=== PATIENT | female | born 1990 | race Caucasian/White ===

== ENCOUNTER 2022-03-08 15:27 | Emergency (ER) | payer BC, SELFPAY ==
--- OUTSIDE RECORDS SUMMARY | 2022-03-08 15:31 | XMS REPORT | Continuity of Care Document ---
:1990 Author Organization [facility] t Address [address] [place] [address] Care Team Providers Name Role Phone CAM MCKINNON Primary Care Physician Unavailable Yue Valdivia Attending Clinician Unavailable Doctor Unassigned, [place] Attending Clinician Unavailable CHER BETTS Attending Clinician Unavailable CHER BETTS Attending Clinician Unavailable Cam Mckinnon MD Attending Clinician Yue Valdivia Admitting Clinician Unavailable CHER BETTS Admitting Clinician Unavailable Payers Payer Name Policy Type Policy Number Effective Date Expiration Date S ource Problems Condition Condition Condition Status Onset Resolution Last Treating Co mments Source Name Details Category Date Date Treatment Clinician Date Hyperemesi Hyperemesi Disease Active 2018-02 U lesvia s s 2- [place] Dehydratio Dehydratio Disease Active 2018-02 U lesvia n n 2- ity of 00:00: [place] 00 Medical Branch Gastropare Gastropare Disease Active 2014-02 U lesvia sis sis - ity of 00:00: [place] 00 Medical Branch ADD ADD Disease Active 2014-02 Univers (attention (attention -18 it y of deficit deficit 00:00: [place] disorder) disorder) 00 Medi liudmila without without Branch hyperactiv hyperactiv ity ity Family Family Disease Active 2014-02 Univers history of history of 1-18 it y of breast breast 00:00: [place] cancer cancer Medical Branch Former Former Disease Active 2014-02 Univers smoker smoker -18 ity of 00:00: [place] 00 [facility] Seasonal Seasonal Problem Active Commo n allergies allergies Spir it - [facility] PCOS PCOS Problem Active Common (polycysti (polycysti Sp mamta c ovarian c ovarian - CH I syndrome) syndrome) [facility] Gastroesop Gastroesop Problem Active C ommon hageal hageal Spirit reflux reflux - CHI disease disease St without without [facility] esophagiti esophagiti Me dical [facility] Irritable Irritable Problem Active Com mon bowel bowel Spirit syndrome, syndrome, - CH I unspecifie unspecifie St d type d type [facility] Family Family Diagnosis Active Common history of history of Sp mamta diabetes diabetes - CHI during during [facility] Viral URI Viral URI Diagnosis Active C ommon Spirit - [facility] Depression Depression Problem Active C ommon with with Spirit anxiety anxiety - [facility] Allergies, Adverse Reactions, Alerts Allergy Allergy Status Severity Reaction(s) Onset Inactive Treating Comm ents Source Name Type Date Date Clinician No Known DA Active U [facility] 09[facility]12 [facility] [place] No Known DA Active U NONE [facility] 09-12 [facility] All[facility] 00:00: Hospita s [address] [facility] Bupropio Propensi Active Nausea 2014-02 Univer s n ty to and/or 2-04 ity of adverse Vomiting 00:00: [place] reaction 00 Medical s Branch BUPROPIO DRUG Active N/V 2014-02 Univers N INGREDI 2-04 ity of 00:00: [address] No Known DA Active U [facility] 06-26 [facility] All[facility] 00:00: [facility] [place] No Known DA Active U NONE [facility] 06-26 [facility] 00:00: [facility] [place] Social History Social Habit Start Date Stop Date Quantity Comments Source Sex Assigned At Universit [facility] of [facility] Tobacco use and 2019-02-03 2019-02-03 Never used Universit y of exposure 00:00:00 00:00:00 [place] [facility] History [facility] 2019-02-03 2019-02-03 16 University o f Education 00:00:00 00:00:00 [place] [facility] History [facility] 2019-02-03 2019-02-03 5 University o f Financial 00:00:00 00:00:00 [place] [facility] History [facility] Food 2019-02-03 2019-02-03 1 Univers ity of Worry 00:00:00 00:00:00 [place] [facility] History [facility] Food 2019-02-03 2019-02-03 1 Univers ity of Scarcity 00:00:00 00:00:00 [place] [facility] History [facility] 2019-02-03 2019-02-03 2 University o f Transport Med 00:00:00 00:00:00 [place] Medic al Branch History [facility] 2019-02-03 2019-02-03 2 University o f Transport Non-Med 00:00:00 00:00:00 [facility] edical Branch Alcohol intake 2019-02-03 2019-02-03 Ex-drinker [facility] 00:00:00 00:00:00 (finding) [facility] Alcohol Comment 2014-11-30 2014-11-30 rarely Universit y of 00:00:00 00:00:00 [facility] Smoking Status Start Date Stop Date Source Former smoker 2019-02-03 00:00:00 2019-02-03 00:00:00 [facility] Medications Ordered Filled Start Stop Current Ordering Indication Dosage Frequency Signature Comments Components Source Medication Medication Date Date Medication? Clinician (SIG) Name Name scopolamine 2018-02 Yes [id number] 1.5mg Apply 1 Univers transdermal 2-30 Patch to ity of 1 mg over 3 00:00: area(s) Patric as days patch 00 every 72 Medic al (seventy-t Branch wo) hours. proMETHazin 2018-02 Yes 12.5mg Take 12.5 Univers e 25 mg 2-28 mg by ity of tablet 20:23: mouth [place] 49 every 4 Medical (four) Branch hours as needed for Nausea and Vomiting (N/V). doxylamine- 2018-02 Yes [id number] 1{tbl} Take 1 Univers pyridoxine, 2-28 tablet by ity of vit B6, 00:00: mouth 2 [place] (BONJESTA) 00 (two) Medical 20-20 mg times Branch TbID daily. metoclopram 2018-02 Yes [id number] 10mg Take 1 Univers manuel HCl 10 2-28 tablet by ity of mg tablet 00:00: mouth [place] 00 before Medical meals and Branch at bedtime. ondansetron 2018-02 Yes [id number] 4mg Take 1 Univers (ZOFRAN 2-28 tablet by ity of ODT) 4 mg 00:00: mouth [place] disintegrat 00 every 6 Medic al ing tablet (six) Branch hours as needed for Nausea and Vomiting (N/V). esomeprazol 2018-02 Yes [id number] 20mg Take 20 mg Univers e (NEXIUM) 2-28 by mouth ity o f 20 mg 00:00: daily [place] capsule 00 before a Medical meal. Branch clonazePAM Yes [id number] .5mg Take 1 U nivers 0.5 mg 9-13 tablet by ity of tablet 00:00: mouth as [place] 00 needed Medical (anxiety Branch or insomnia). citalopram Yes [id number] 20mg Take 1 U nivers 20 mg 7-24 tablet by ity of tablet 00:00: mouth [place] 00 daily. Medical Branch clonazePAM 2019- No [id number] .5mg Take 1 Univers 0.5 mg 4-29 09-13 tablet by ity of tablet 00:00: 00:00 mouth as [place] 00 :00 needed Medical (anxiety Branch or insomnia). Yes Lito 1 tablet C ommon Brigida [facility] Clonazepam Clonazepam Yes Lito 1 tablet Common Brigida at bedtime [facility] Melatonin Melatonin Yes Lito 1 tablet Common Brigida at bedtime [facility] as needed - CHI with food [facility] Procedures Procedure Date / Time Performing Clinician Source Performed [id number] 2019-09-26 00:00:[address] [facility] [id number] 2019-09-26 00:00:[address] [facility] [id number] 2019-09-26 00:00:[address] [facility] AUTHORIZATION FOR 2019-09-16 05:01:00 Doctor Unassigned, No Univ [facility] RELEASE OF PHI Name Medical Branch Encounters Start End Encounter Admission Attending Care Care Encounter Source Date/Time Date/Time Type Type Clinicians Facility Department ID 2019-09-29 Inpatient EL RISHI Valdivia LD [id number] [facility] 14:00:00 [facility]ue 58 [facility] [place] 2019-09-26 Inpatient GERI ValdiviaWH LUAN [id number] [facility] 03:20:00 Yue 40 [facility] [place] 2019-09-13 Inpatient GERI ValdiviaWH LUAN [id number] [facility] 10:10:00 Yue [facility] [place] 2019-04-18 Inpatient [facility] [id number] [facility] 05:07:00 18 [facility] [place] 2019-09-16 2019-09-16 Orders Doctor GONZALEZ [id number] 00:00:00 00:00:00 Only Unassigned, FELICITA [id number] [place] [facility] [phone] [facility] 2019-09-16 2019-09-16 Orders Doctor ROTH [id number] [facility] 00:00:00 00:00:00 Only Unassigned, FELICITA [id number] ity of [place] [facility] [id number] Patric as [phone] [address] 2019-05-03 2019-05-03 Outpatient RISHI Valdivia [facility] [id number] [facility] 13:30:00 13:30:00 Yue 35 [facility] [place] 2019-02-03 2019-02-04 Outpatient X CHER BETTS [facility] OBF [id number] [facility] 10:00:14 14:23:00 CHER BETTS [facility] 2018-10-21 2018-10-21 Stevie Mckinnon [facility] [id number] 00:00:00 00:00:00 Cam [facility] [id number] Reji [place] [id number] Professio [phone] nal [address] 2018-10-21 2018-10-21 Stevie Mckinnon [facility] [id number] [facility] 00:00:00 00:00:00 [facility] [id number] it y of Reji Flores [id number] Patric as [place] [phone] Mo dical nal 044 Branch Office [facility] One 2018-02-28 2018-02-28 Outpatient Codie Brooks [id number] Common 11:14:00 11:14:00 [facility] 2018-02-28 2018-02-28 Outpatient Codie Brooks 23 [id number] Common 09:15:00 09:15:00 [facility] Results Test Description Test Time Test Comments Results Result Comments Source HGB HCT 2019-09-27 07:33:00 Test Item Value Reference Range Interpretation Comme nts HEMOGLOBIN (test code = HGB) 9.4 g/dL 10.7-13.9 L Results verified by repeat analysis HEMATOCRIT (test code = HCT) 29.7 % 32.1-42.1 L Results verified by repeat analysis AG HEPATITIS B [id number] 09:15:00 Test Item Value Reference Range Interpretation Comments AG HEPATITIS B SURFACE (test code NONREACTIVE NONREACTIVE = HBSAG) Specimen Comment: LDO [facility] CONSENT FORM SIGNED FOR HIV TESTING? YAB HEPATITIS C [id number] 09:15:00 Test Item Value Reference Range Interpretation Comments AB HEPATITIS C (test code = NONREACTIVE NONREACTIVE HCVAB) SIGNAL TO CUTOFF (test code = 0.21 <0.80 N CUTOFF) Specimen Comment: O [facility] CONSENT FORM SIGNED FOR HIV TESTING? YAB TREPONEMA 2019-09-26 09:15:00 Test Item Value Reference Range Interpretation Comments AB TREPONEMA (test code = TREPAB) NONREACTIVE NONREACTIVE Specimen Comment: O [facility] CONSENT FORM SIGNED FOR HIV TESTING? YAB HIV 1 2 2019-09-26 09:15:00 Test Item Value Reference Range Interpretation Comments AB HIV 1 2 (test NONREACTIVE NONREACTIVE Done by Sie [facility] code = [id number]) 4th Gen HIV Ag/Ab Combo Screen Specimen Comment: O [facility] CONSENT FORM SIGNED FOR HIV TESTING? YCBC W/AUTO DIFF 2019-09-26 07:33:00 Test Item Value Reference Range Interpretation Comments WHITE BLOOD CELL (test code = WBC) 16.3 K/mm3 6.6-12.1 H RED BLOOD CELL (test code = RBC) 4.54 M/mm3 3.45-5.01 N HEMOGLOBIN (test code = HGB) 12.9 g/dL 10.7-13.9 N HEMATOCRIT (test code = HCT) 40.6 % 32.1-42.1 N MEAN CELL VOLUME (test code = MCV) 89 fL 84.1-94.8 N MEAN CELL HGB (test code = MCH) 28.4 pg 27-35 N MEAN CELL HGB CONCETRATION (test 31.8 gm/dL 32.2-34.1 L code = MCHC) RED CELL DISTRIBUTION WIDTH (test 14.3 % 12.4-16.5 N code = RDW) PLATELET COUNT (test code = PLT) 159 K/mm3 133-385 N MEAN PLATELET VOLUME (test code = 12.6 fl 9.1-12.7 N MPV) NEUTROPHIL % (test code = NT%) 87.4 % 56.5-79.4 H LYMPHOCYTE % (test code = LY%) 6.8 % 14.3-34.3 L MONOCYTE % (test code = MO%) 4.9 % 5.1-10.4 L EOSINOPHIL % (test code = EO%) 0.1 % 0.1-3.0 N BASOPHIL % (test code = BA%) 0.2 % 0.1-1.0 N NEUTROPHIL # (test code = NT#) 14.2 K/mm3 LYMPHOCYTE # (test code = LY#) 1.1 K/mm3 MONOCYTE # (test code = MO#) 0.8 K/mm3 EOSINOPHIL # (test code = EO#) 0.02 K/mm3 BASOPHIL # (test code = BA#) 0.0 K/mm3 RBC MORPHOLOGY REQUIRED (test code NORMAL NORMAL = RBCM) PLATELET MORPHOLOGY REQUIRED (test NORMAL NORMAL code = PLTMR) COVID 19 Asymptomatic IH [id number] 06:09:00 Test Item Value Reference Range Interpretation Comments COVID 19 NEGATIVE NEGATIVE This test has b een Asymptomatic IH AG authorize d only for the (test code = detection ofpro teins from COVNONPUIAG) SARS-CoV-2, not for any other viruses orpathogens. Ne gative results should be treated as presumptive andconfirmed wi th a molecular assay , if necessary for patientmanageme nt. Negative result s do not rule out COVID- 19 andshould not b e used as the sole basis for treatment orpat ient management deci sions, including infec tion controldecision s. Negative result s should be considered i n thecontext of a patient's recent exposure s, history and thepresence of clinical signs and symptoms consis tent withCOVID-19. T his test has not been FD A cleared or approved; th e test hasbeen authori logan by FDA under an Emerge ncy Use Authorization(E UA) for use by laborato quique certified under the CLIA thatmeet the re quirements to perform mode rate, high or waivedcomple xity tests. This liam t is authorized for use at thePoint of Car e (POC), i.e., in patien t care settingsoperati ng under a CLIA Certificat e of Waiver, Certifi judy ofCompliance, o r Certificate of Accreditation. This test is only authori logan for the duration of thedeclaration that circumstances e xist justifying theauthorizatio n of emergency use o f in vitro diagnostic test sfor detection and/o r diagnosis of CO VID-19 under Tjlbqkx76 4(b)(1) of the Act, 21 U.S .C. 360bbb-3(b)(1), unless theauthorizatio n is terminated or r evoked sooner. - US PREG AFTER [id number] 16:21:00 Patient Name: PARUL POLANCO Unit No: [id number] EXAMS: CPT CODE: [id number] US PREG AFTER [address] [facility] [address] [place], [place] [address] OBSTETRICAL ULTRASOUND REPORT Pat. Name: PARUL POLANCO Pat. No:[id number] Study Date: 05/03/2019 2:22pm , Age: 06 1990, 28 Pregnancies: 1, Para 0 LMP: 12/17/2018 GA by LMP: 19w4d GA by US: 19w0d GA Selected: 19w3d (From Known E) SARIKA: 09/24/2019 Referr deng RANGEL: YUE VALDIVIA Pet Nutrition Specialist: La Redmond RDMS CPT4: [id number] Admitting MD: YUE VALDIVIA Hist/Ind: Scan 1: Anatomy M EASUREMENTS AGE GROWTH EVALUATION Measurement GA Range Srce %for GA Ratios ----- ---- ------- BPD 4.2 cm 18w4d (73h8g-51o7e) Hadl BPD 13%FL/BPD 0.71 HC 16.2 cm 18w6d (17w2d- 20w3d) Hadl HC 34% FL/AC 0.21 APD 4.5 cm APD HC/AC 1.13 (1.06 - 1.25) TAD 4.6 cm TAD CI 0.76 (0.70 - 0.86) AC 14.3 cm 19w2d (60e0z-49l6c) Hadl AC 48% FL 3.0 cm 18w6d (42v4i-03k0s) Hadl FL 39% HL 3.0 cm 19w6d (26t5h-02n0x) Faisal HL 57% GA for sonogram 19w0d (53c8x-27m6w) Weight Estimate: based on (BPD,HC,AC,FL) Hadlock Weight: 290 gm (247-332) Hadlock : 0lbs, 10oz Cervical Length: 3.6 cm Heart Rate: 143 bpm MATERNAL ANATOMY Ovaries LxHxW (cm) Right 2.5 x 1.6 x 3.0 Vol: 6.3cc Left 2.8 x 1.8 x 3.0 Vol: 7.9cc Ovarian Cysts LxHxW (cm) L1: 1.0 x 1.2 x 1.2 CLINICAL SUMMARY Type of Gestation: Osorio Intrauterine in variable presentation. size is appropriate for gestational age. growth: Consistent with normal growth motion and organs seen: heart motion seen [facility] NAME: PARUL POLANCO Radiology Department PHYS: Yue Cleary MD [address] : 1990 AGE: 28 SEX: F [place] [address] LOC: [facility] PHONE #: [phone] EXAM DATE: 05/03/2019 STATUS: REG CLI FAX #: [phone] RAD NO: Page 1 Signed Report (CONTINUED) Patient Name: PARUL POLANCO Unit No: [id number] EXAMS: CPT CODE: [id number] US PREG AFTER 1ST TRI 64126 (Continued) body and limb movements seen Four chamber heart observed Left ventricular outflow tract (LVOT) seen Right ventricular outflow tract (RVOT) seen Normal intracranial anatomy seen Umbilical cord insertion in fetus seen stomach, Renal Fossa, Bladder and Spine seen Three vessel umbilical cord noted abnormalities observed: None seen at this exam Placental location: Posterior Placental maturity : Grade 1 There is no evidence of placenta previa. Amnioticfluid volume is normal. Uterus and adnexa: No significant abnormality is seen. Thank you for allowing us to participate in the care of this patient. Anastasia iH M.D. Electronic Signature 05/03/2019 04:21pm at 1621 Reported and signed by: Anastasia Hi MD CC: Yue Valdivia Technologist: La Redmond RDMS Probe: Trnscrbd D/ (1621) t.SDR.C Orig Print D/T: S: 05/03/2019 (1620) [facility] NAME: PARUL POLANCO Radiology Department PHYS: Yue Cleary MD [address] : 1990 AGE: 28 SEX: F [phone] LOC: [facility] PHONE #: [phone] EXAM DATE: 05/03/2019 STATUS: REG CLI FAX #: [phone] RAD NO: Page 2 Signed Report Patient Name: PARUL POLANCO Unit No: [id number] EXAMS: CPT CODE: [id number] US PREG AFTER 1ST TRI 54437 (Continued) [facility] NAME: PARUL POLANCO Radiology Department PHYS:Yue Cleary MD [address] : 1990 AGE: 28 SEX: F [phone] LOC: [facility] PHONE #: [phone] EXAM DATE: 05/03/2019 STATUS: REG CLI FAX #: [phone] RAD NO: Page 3 Signed [id number] 07:56:00 Test Item Value Reference Range Interpretation Comments CORTISOL (test code = 10.98 mcg/dL See Note: N Ref Ra nge: AM CORTR) 4.30-22.40 PM 3.09-16.66 mcg/ dL HCG [id number] 07:07:00 Test Item Value Reference Range Interpretation Comments HCG SERUM (test 44254 INTERPRETATI ON:VALUES BETWEEN code = HCG) 15-20 milliInte rnational units/mL NEED T O BERETESTED WITHIN 48 HOURS . All units for these ranges ar e in milliInternatio nalunits/mL0-1 WK AFTER CONCEP TION 0-50 1-2 WKS AFTER ASHISH PTION 40-3002-3 WKS AFTER ASHISH PTION 100-1,0003-4 WK S AFTER CONCEPTION 500- 6,0001-2 MONTHS AFTER CONCEPTIO N 5,000-200,0002- 3 MONTHS AFTER CONCEPTION 10,0 00-100,0002ND TRIMESTER 3,000 -50,0003RD TRIMESTER 1,000 -50,000 SPECIMENS WITH AN HCG LEVEL FROM 0-6 milliInternatio nalunits/mL SHOULD BE CONSI DERED NEGATIVE COMPREHENSIVE METABOLIC [id number] 06:22:00 Test Item Value Reference Range Interpretation Comments SODIUM (test code = NA) 139 mEq/L 135-145 N POTASSIUM (test code = K) 3.0 mEq/L 3.5-5.0 L CHLORIDE (test code = CL) 104 mEq/L 100-115 N CARBON DIOXIDE (test code = CO2) 24 mEq/L 22-31 N ANION GAP (test code = GAP) 14.10 10-20 N GLUCOSE (test code = GLU) 83 mg/dL 65-110 N BLOOD UREA NITROGEN (test code = 6 mg/dL 7-18 L BUN) GLOMERULAR FILTRATION RATE (test 146 ml/min >60 N code = GFR) CREATININE (test code = CREAT) 0.5 mg/dL 0.5-1.0 N TOTAL PROTEIN (test code = PROT) 6.4 gm/dL 6.3-8.2 N ALBUMIN (test code = ALB) 3.0 gm/dL 3.4-4.8 L CALCIUM (test code = CA) 8.1 mg/dL 8.4-10.2 L BILIRUBIN TOTAL (test code = BILT) 0.4 mg/dL 0.2-1.0 N SGOT/AST (test code = AST) 17 units/L 15-37 N SGPT/ALT (test code = ALT) 22 units/L 12-78 N ALKALINE PHOSPHATASE TOTAL (test 46 units/L 46-116 N code = ALKP) CBC W/AUTO [id number] 06:01:00 Test Item Value Reference Range Interpretation Comments WHITE BLOOD CELL (test code = WBC) 10.5 K/mm3 6.6-12.1 N RED BLOOD CELL (test code = RBC) 4.13 M/mm3 3.45-5.01 N HEMOGLOBIN (test code = HGB) 12.5 g/dL 10.7-13.9 N HEMATOCRIT (test code = HCT) 37.5 % 32.1-42.1 N MEAN CELL VOLUME (test code = MCV) 91 fL 84.1-94.8 N MEAN CELL HGB (test code = MCH) 30.3 pg 27-35 N MEAN CELL HGB CONCETRATION (test 33.3 gm/dL 32.2-34.1 N code = MCHC) RED CELL DISTRIBUTION WIDTH (test 13.2 % 12.4-16.5 N code = RDW) PLATELET COUNT (test code = PLT) 209 K/mm3 133-385 N MEAN PLATELET VOLUME (test code = 10.1 fl 9.1-12.7 N MPV) NEUTROPHIL % (test code = NT%) 74.8 % 56.5-79.4 N LYMPHOCYTE % (test code = LY%) 14.2 % 14.3-34.3 L MONOCYTE % (test code = MO%) 7.3 % 5.1-10.4 N EOSINOPHIL % (test code = EO%) 2.9 % 0.1-3.0 N BASOPHIL % (test code = BA%) 0.4 % 0.1-1.0 N NEUTROPHIL # (test code = NT#) 7.9 K/mm3 LYMPHOCYTE # (test code = LY#) 1.5 K/mm3 MONOCYTE # (test code = MO#) 0.8 K/mm3 EOSINOPHIL # (test code = EO#) 0.30 K/mm3 BASOPHIL # (test code = BA#) 0.0 K/mm3 RBC MORPHOLOGY REQUIRED (test code NORMAL NORMAL = RBCM) PLATELET MORPHOLOGY REQUIRED (test NORMAL NORMAL code = PLTMR)
[2022-03-08 15:59] LABS: Absolute Lymphocytes (CBC) 2.7 K/uL (0.7-4.9); Hematocrit 42.7 % (36.0-45.0); Lymphocytes % 21.1 % (15.3-44.8); MCV 87.3 fL (80-100); MPV 8.3 fL (7.6-11.3); RBC Red Blood Cell Count 4.89 M/uL (3.86-4.86)
[2022-03-08 16:02] LABS: Protime INR 1.14
[2022-03-08 16:22] LABS: ALT/SGPT 33 U/L (13-56); AST/SGOT 21 U/L (15-37); Albumin 3.9 g/dL (3.4-5.0); Alkaline Phosphatase 105 U/L (45-117); BUN Blood Urea Nitrogen 11 mg/dL (7-18); Bicarbonate 26 mmol/L (21-32); Bilirubin Total 0.2 mg/dL (0.2-1.0); Glomerular Filtration Rate 123 ml/min (=/>90); Glucose Level 105 mg/dL (74-106); Magnesium 1.6 mg/dL (1.6-2.4); NT PRO-BNP 70 pg/mL (<125); Potassium 3.8 mmol/L (3.5-5.1); Protein, Total 7.3 g/dL (6.4-8.2); Sodium Level 139 mmol/L (136-145); Thyroid Stimulating Hormone 0.783 uIU/mL (0.358-3.740); Troponin High Sensitivity 3.7 pg/mL (<58.9)
[2022-03-08 16:24] LABS: Bilirubin Direct < 0.1 mg/dL (0-0.2)
--- NOTE | 2022-03-08 17:01 | RAD REPORT ---
EXAM DESCRIPTION: RAD - Chest Single View - 03/08/2022 4:52 pm CLINICAL HISTORY: PALPITATIONS COMPARISON: CHEST PA AND LAT 2 VIEW dated 01/12/2013 FINDINGS: Lines: None. Lungs: No evidence of edema or pneumonia. Pleural: No significant pleural effusions or pneumothorax. Cardiac: The heart size is within normal limits. Mediastinum: Within normal limits. Bones: No acute fractures. Other: None IMPRESSION: No acute cardiopulmonary disease.
--- NOTE | 2022-03-08 17:42 | EDPHYS ---
Physician Documentation [facility] Name: Marleni Dye Age: 31 yrs Sex: Female : 1990 Arrival Date: 03/08/2022 Time: 15:28 Bed 18 Private MD: ED Physician Samir Saldana HPI: 03/08 17:47 This 31 yrs old Female presents to ER via Ambulatory with complaints of Abnormal EKG. snw 17:47 Onset: The symptoms/episode began/occurred 4 day(s) ago, and became persistent. snw Associated signs and symptoms: Pertinent positives: near syncope, palpitations, flushing. Modifying factors: The patient symptoms are alleviated by nothing, the patient symptoms are aggravated by Pt has been taking Cipro and Zofran s/p renal calculus (prolonged QT?). Pt also has a history of gestational hyperthyroidism. Historical: - Allergies: 16:20 No Known Allergies; mb9 - PMHx: 16:20 Kidney stone; polycystic ovary syndrome; mb9 - PSHx: 16:20 Tonsillectomy; Adenoid excision; mb9 - Immunization history:: Adult Immunizations up to date. - Social history:: Smoking status: Patient denies any tobacco usage or history of. ROS: 17:46 Eyes: Negative for injury, pain, redness, and discharge, ENT: Negative for injury, snw pain, and discharge, Neck: Negative for injury, pain, and swelling. 17:46 Respiratory: Negative for shortness of breath, cough, wheezing, and pleuritic chest pain, Abdomen/GI: Negative for abdominal pain, nausea, vomiting, diarrhea, and constipation, Back: Negative for injury and pain, : Negative for injury, bleeding, discharge, and swelling, MS/Extremity: Negative for injury and deformity, Skin: Negative for injury, rash, and discoloration, Neuro: Negative for headache, weakness, numbness, tingling, and seizure, Psych: Negative for depression, anxiety, suicide ideation, homicidal ideation, and hallucinations. 17:46 Constitutional: Positive for flushed feeling, near syncopal. 17:46 Cardiovascular: Positive for palpitations. Exam: 17:46 Constitutional: This is a well developed, well nourished patient who is awake, alert, snw and in no acute distress. Head/Face: Normocephalic, atraumatic. Eyes: Pupils equal round and reactive to light, extra-ocular motions intact. Lids and lashes normal. Conjunctiva and sclera are non-icteric and not injected. Cornea within normal limits. Periorbital areas with no swelling, redness, or edema. ENT: Nares patent. No nasal discharge, no septal abnormalities noted. Tympanic membranes are normal and external auditory canals are clear. Oropharynx with no redness, swelling, or masses, exudates, or evidence of obstruction, uvula midline. Mucous membranes moist. Neck: Trachea midline, no thyromegaly or masses palpated, and no cervical lymphadenopathy. Supple, full range of motion without nuchal rigidity, or vertebral point tenderness. No Meningismus. Chest/axilla: Normal chest wall appearance and motion. Nontender with no deformity. No lesions are appreciated. Respiratory: Lungs have equal breath sounds bilaterally, clear to auscultation and percussion. No rales, rhonchi or wheezes noted. No increased work of breathing, no retractions or nasal flaring. Abdomen/GI: Soft, non-tender, with normal bowel sounds. No distension or tympany. No guarding or rebound. No evidence of tenderness throughout. Back: No spinal tenderness. No costovertebral tenderness. Full range of motion. Skin: Warm, dry with normal turgor. Normal color with no rashes, no lesions, and no evidence of cellulitis. MS/ Extremity: Pulses equal, no cyanosis. Neurovascular intact. Full, normal range of motion. Neuro: Awake and alert, GCS 15, oriented to person, place, time, and situation. Cranial nerves II-XII grossly intact. Motor strength 5/5 in all extremities. Sensory grossly intact. Cerebellar exam normal. Normal gait. Psych: Awake, alert, with orientation to person, place and time. Behavior, mood, and affect are within normal limits. 17:46 Cardiovascular: Rate: tachycardic, Rhythm: regular, Pulses: no pulse deficits are appreciated, Heart sounds: normal, Edema: is not appreciated. Vital Signs: 16:06 BP 136 / 55; Pulse 87; Resp 20; Temp 98.5; Pulse Ox 97% on R/A; Weight 92.99 kg; Height mb9 5 ft. 5 in. (165.10 cm); Pain 0/10; 17:12 BP 123 / 68; Pulse 84; Resp 20; Pulse Ox 100% on R/A; mb9 16:06 Body Mass Index 34.11 (92.99 kg, 165.10 cm) mb9 MDM: 15:50 Patient medically screened. snw 17:44 Differential diagnosis: viral Infection, bacterial infection, hyperthyroidism. Data snw reviewed: vital signs, nurses notes, lab test result(s), EKG, radiologic studies. Counseling: I had a detailed discussion with the patient and/or guardian regarding: the historical points, exam findings, and any diagnostic results supporting the discharge/admit diagnosis, lab results, radiology results, the need for outpatient follow up, for definitive care, to return to the emergency department if symptoms worsen or persist or if there are any questions or concerns that arise at home. Special discussion: Based on the history and exam findings, there is no indication for further emergent testing or inpatient evaluation. I discussed with the patient/guardian the need to see the grocery clerk selling for further evaluation of the symptoms. I discussed with the patient/guardian the need to see the primary care provider for further evaluation of the symptoms. 03/08 15:33 Order name: Basic Metabolic Panel; Complete Time: 16:53 03/08 15:33 Order name: CBC with Diff; Complete Time: 16:14 03/08 15:33 Order name: D-Dimer; Complete Time: 16:14 03/08 15:33 Order name: LFT's; Complete Time: 16:53 03/08 15:33 Order name: Magnesium; Complete Time: 16:53 03/08 15:33 Order name: NT PRO-BNP; Complete Time: 16:53 03/08 15:33 Order name: PT-INR; Complete Time: 16:14 03/08 15:33 Order name: Troponin HS; Complete Time: 16:53 03/08 15:33 Order name: XRAY Chest (1 view); Complete Time: 17:05 03/08 15:33 Order name: Cardiac monitoring; Complete Time: 15:42 03/08 15:33 Order name: IV Saline Lock; Complete Time: 15:52 03/08 15:33 Order name: Labs collected and sent; Complete Time: 15:52 03/08 15:33 Order name: TSH; Complete Time: 16:53 snw 03/08 15:33 Order name: O2 Per Protocol; Complete Time: 15:42 snw 03/08 15:33 Order name: O2 Sat Monitoring; Complete Time: 15:42 snw 03/08 16:05 Order name: EKG - Nurse/Tech; Complete Time: 16:05 mb9 EC:00 Rate is 94 beats/min. Rhythm is regular. No Q waves. No ST changes noted. Clinical snw impression: NSR w/ Non-specific ST/T Changes and Bigeminy. Administered Medications: No medications were administered Disposition Summary: 03/08/22 17:41 Discharge Ordered Location: Home snw Condition: Stable snw Diagnosis - Cardiac arrhythmia, unspecified - bigeminy snw Followup: snw - With: Emergency Department - When: As needed - Reason: Worsening of condition Followup: snw - With: Clayton Christianson MD - When: 1 week - Reason: Recheck today's complaints, Continuance of care, Re-evaluation by your physician Discharge Instructions: - Discharge Summary Sheet snw - Palpitations snw - Rehydration, Adult snw - Ambulatory Cardiac Monitoring snw Forms: - Work release form snw - Medication Reconciliation Form snw - Thank You Letter snw - Antibiotic Education snw - Prescription Opioid Use snw Signatures: Dispatcher [employer] Bárbara Harris, STAFF PSYCHIATRIST-C STAFF PSYCHIATRIST-Csnw Sarahi Thomas, RN RN mb9 Corrections: (The following items were deleted from the chart) 16:12 15:54 Urine Dipstick-Ancillary ordered. snw mb9 16:12 15:54 Urine Test ordered. snw mb9
--- NOTE | 2022-03-08 17:42 | ER ---
Nurse's Notes [facility] Name: Marleni Dye Age: 31 yrs Sex: Female : 1990 Arrival Date: 03/08/2022 Time: 15:28 Bed 18 Private MD: Diagnosis: Cardiac arrhythmia, unspecified-bigeminy Presentation: 03/08 15:29 Chief complaint: Patient states: "I feel flushed and have a sensation in my throat that mb9 makes me cough. I feel like I've been having palpations. I recently had a kidney stone and stopped taking the Cipro, Zofran, and Flomax on when the symptoms started". 15:29 Coronavirus screen: Vaccine status: Patient reports receiving the 2nd dose of the covid mb9 vaccine. Ebola Screen: No symptoms or risks identified at this time. Initial Sepsis Screen: Does the patient meet any 2 criteria? No. Patient's initial sepsis screen is negative. Does the patient have a suspected source of infection? No. Patient's initial sepsis screen is negative. Risk Assessment: Do you want to hurt yourself or someone else? Patient reports no desire to harm self or others. Onset of symptoms was March 05, 2022. 15:29 Method Of Arrival: Ambulatory mb9 15:29 Acuity: SCHUYLER 3 mb9 Historical: - Allergies: 16:20 No Known Allergies; mb9 - PMHx: 16:20 Kidney stone; polycystic ovary syndrome; mb9 - PSHx: 16:20 Tonsillectomy; Adenoid excision; mb9 - Immunization history:: Adult Immunizations up to date. - Social history:: Smoking status: Patient denies any tobacco usage or history of. Assessment: 15:40 General: Appears uncomfortable, Behavior is cooperative. Pain: Denies pain. Neuro: mb9 Level of Consciousness is awake, alert, obeys commands, Oriented to person, place, time, situation, Appropriate for age. Cardiovascular: Reports palpitations, shortness of breath, since 3 days ago Heart tones S1 S2 present Capillary refill < 3 seconds is brisk Rhythm is ventricular bigeminy. 15:40 Respiratory: Airway is patent Respiratory effort is even, unlabored, Respiratory mb9 pattern is regular, symmetrical, Breath sounds are clear bilaterally. GI: Abdomen is round non-distended, Bowel sounds present X 4 quads. Abd is soft and non tender X 4 quads. : No signs and/or symptoms were reported regarding the genitourinary system. EENT: No signs and/or symptoms were reported regarding the EENT system. Derm: Skin is intact, is healthy with good turgor, Skin is clammy, Skin is pale, Skin temperature is cool. Musculoskeletal: Range of motion: intact in all extremities. 16:40 Reassessment: No changes from previously documented assessment. Patient and/or family mb9 updated on plan of care and expected duration. Pain level reassessed. Patient is alert, oriented x 3, equal unlabored respirations, skin warm/dry/pink. 17:40 Reassessment: No changes from previously documented assessment. Patient and/or family mb9 updated on plan of care and expected duration. Pain level reassessed. Patient is alert, oriented x 3, equal unlabored respirations, skin warm/dry/pink. Vital Signs: 16:06 BP 136 / 55; Pulse 87; Resp 20; Temp 98.5; Pulse Ox 97% on R/A; Weight 92.99 kg; Height mb9 5 ft. 5 in. (165.10 cm); Pain 0/10; 17:12 BP 123 / 68; Pulse 84; Resp 20; Pulse Ox 100% on R/A; mb9 16:06 Body Mass Index 34.11 (92.99 kg, 165.10 cm) mb9 ED Course: 15:28 Patient arrived in ED. rg4 15:29 Arm band placed on. mb9 15:29 Placed in gown. Bed in low position. Call light in reach. Side rails up X 1. Client mb9 placed on continuous cardiac and pulse oximetry monitoring. NIBP monitoring applied. shelter monitor on. 15:29 Door closed. Noise minimized. Warm blanket given. mb9 15:42 Sarahi Thomas RN is Primary Nurse. mb9 15:42 Bárbara Ramirez FNP-C is PHCP. snw 15:42 Samir Saldana MD is Attending Physician. snw 15:52 Basic Metabolic Panel Sent. mb9 15:52 CBC with Diff Sent. mb9 15:52 Troponin HS Sent. mb9 15:52 D-Dimer Sent. mb9 15:52 LFT's Sent. mb9 15:53 Magnesium Sent. mb9 15:53 NT PRO-BNP Sent. mb9 15:53 PT-INR Sent. mb9 15:53 EKG done, by ED staff, reviewed by Bárbara CAZARES. Inserted saline lock: 20 gauge mb9 in right antecubital area, using aseptic technique. Blood collected. 16:20 Triage completed. mb9 16:54 XRAY Chest (1 view) In Process Unspecified. EDMS 17:38 Clayton Christianson MD is Referral Physician. snw 17:43 No provider procedures requiring assistance completed. IV discontinued, intact, mb9 bleeding controlled, No redness/swelling at site. Pressure dressing applied. Administered Medications: No medications were administered Medication: 16:10 VIS not applicable for this client. mb9 Outcome: 17:41 Discharge ordered by . snw 17:43 Discharged to home ambulatory. mb9 17:43 Condition: stable 17:43 Discharge instructions given to patient, Instructed on discharge instructions, follow up and referral plans. Demonstrated understanding of instructions, follow-up care. 17:56 Patient left the ED. mb9 Signatures: Dispatcher [employer] Bárbara Harris FNP-C FNP-Alysha Alvarado rg4 Sarahi Thomas, RN RN mb9 Corrections: (The following items were deleted from the chart) 16:24 15:29 Chief complaint: Patient states: "I feel flushed and have a sensation in my mb9 throat that makes me cough. I feel like I've been having palpations" mb9 16:24 15:29 Ebola Screen: No symptoms or risks identified at this time. mb9 mb9
[2022-03-08 18:03] VITALS: TEMP 98.5
[2022-03-08 18:09] VITALS: BP 123/68; O2SAT 100
--- NOTE | 2022-03-10 17:02 | EKG ---
Test Date: 2022-03-08 Test Time: 14:52:41 Heel Lining Paster: BEENA MEASUREMENT RESULTS: Intervals: Rate: 94 WA: 148 QRSD: 84 QT: 378 QTc: 472 [place]: P: 38 WA: 148 QRS: 18 T: 41 INTERPRETIVE STATEMENTS: Sinus rhythm with frequent premature ventricular complexes in a pattern of bigeminy Possible Left atrial enlargement Cannot rule out Anterior infarct, age undetermined Abnormal ECG No previous ECG available for comparison Electronically Signed On 03-10-22 16:57:44 SENSORY SCIENTIST by Clayton Christianson
== END 2022-03-08 17:56 | disposition home or self-care (01) ==
LOC: ER 15:27
DX: I49.9 Cardiac arrhythmia, unspecified (principal)
CPT/HCPCS: 36415; 71045; 80048; 80076; 83735; 83880; 84443; 84484; 85025; 85379; 85610; 93005; 99284